=== PATIENT | female | born 1995 | race Caucasian/White ===

== ENCOUNTER 2024-04-29 09:27 | Emergency (ER) | payer BC, MEDICAID ==
[~2024-04-29] VITALS: Ht 165.1 cm; Wt 49.5 kg
[~2024-04-29 09:27] MED LIST: HYDR-4383 PO; ONDA4TAB6 PO; POTA-207 PO
[2024-04-29 09:33] VITALS: BP 126/89; PULSE 86; TEMP 97.8; O2SAT 100
[2024-04-29 12:06] VITALS: RESP 16
[2024-04-29] MEDS: ketorolac trometh 15mg/ml vial 15 MG/ML ML IM ONE ×2 (12:06→13:06)
[2024-04-29] MEDS ORDERED: AMOX500C2 PO (13:00)
[2024-04-29] MEDS ORDERED: NAPR-56 PO (13:00)
[2024-04-29] MEDS: amoxicillin 250mg capsule PO ONE (13:26)
== END 2024-04-29 13:28 | disposition home or self-care (01) ==
LOC: ER 09:28
DX: K02.9 Dental caries, unspecified (principal); K04.7 Periapical abscess without sinus; Z88.1 Allergy status to other antibiotic agents; Z79.2 Long term (current) use of antibiotics; Z79.899 Other long term (current) drug therapy; Z88.6 Allergy status to analgesic agent
CPT/HCPCS: 96372; 99283; J1885

== ENCOUNTER 2024-08-07 21:06 | Emergency (ER) | payer MEDICAID ==
[~2024-08-07] VITALS: Ht 165.1 cm; Wt 50.9 kg
[2024-08-07 21:10] VITALS: BP 121/77; PULSE 98; RESP 18; TEMP 98.9; O2SAT 96
== END 2024-08-07 23:41 | disposition left against medical advice (07) ==
LOC: ER 21:07
DX: K04.7 Periapical abscess without sinus (principal); Z53.21 Procedure and treatment not carried out due to patient leaving prior to being seen by health care provider; Z88.1 Allergy status to other antibiotic agents